=== PATIENT | male | born 1955 | race Caucasian/White ===

== ENCOUNTER → 2017-01-23 | Outpatient (CLI) | payer BC ==
[~2017-01-23] MED LIST: BUPIVACAINE MPF 0.5% 10 ML VIAL for KCIC. IJ ONE; CONTRAST GIVEN MC PRN; DICL1TAB5 PO; ESCI20TA PO; IOHEXOL 300 MG/ML 50 ML VIAL. INT ART ONE; LIDOCAINE 1% Multi-Dose 20 ML VIAL. ID ONE; OMEP40CA2 PO; RANI300T3 PO; SILD100T PO; TRAM50TA PO; methylPREDNISolone ACETATE 40 MG/ML VIAL. INT ART ONE
--- NOTE | 2017-01-24 10:22 | KCIC ---
PROCEDURE Therapeutic right and left shoulder steroid injections using fluoroscopic guidance. HISTORY Pain. TECHNIQUE The procedure was explained to the patient as were potential risks, including among others infection, bleeding or allergic reaction. All questions were answered. Informed written consent was obtained. The anterior right shoulder was prepped and draped in the usual sterile manner. Following administration of local anesthetic, a 22-gauge needle was advanced into the shoulder joint without difficulty. Following negative aspiration, a mixture of 4 cc Omnipaque-300, 2 cc (80 mg) Depo-Medrol, 4 cc 0.5% Marcaine and 4 cc 1% lidocaine were injected without difficulty. Fluoroscopy demonstrates uniform and satisfactory distribution of the injection through the shoulder. The needle was removed. There was good hemostasis at the injection site. The patient left in stable condition without immediate complication. The left shoulder was then prepped and draped in the usual sterile manner. Following administration of local anesthetic, a 22-gauge needle was advanced into the anterior shoulder. Following negative aspiration, 12 cc of a solution of 5cc Omnipaque-300 contrast, 5 cc 1% lidocaine, 10 cc normal saline, and 0.1 cc gadolinium was injected without difficulty. The needle was removed. There was good hemostasis at the injection site. The patient left in stable condition without immediate complication. The patient was given postprocedural instructions, instructed to contact us or the emergency room if there are any complications. Two spot images were obtained. FLUOROSCOPY TIME: 51 seconds Electronically signed by: Delio Palomo MD (Jan 24, 2017 10:20:45)
== END | disposition home or self-care (01) ==
LOC: KCIC 15:14
PROVIDERS: ATTEND Orthopaedic Surgery
DX: M17.0 Bilateral primary osteoarthritis of knee (principal)
CPT/HCPCS: 20610; 77002; J1030; Q9967

== ENCOUNTER → 2017-06-13 | Outpatient (CLI) | payer BC ==
[~2017-06-13] MED LIST changes: -CONTRAST GIVEN MC PRN; -ESCI20TA PO; +ESCITALOPRAM OX20 MG PO; -LIDOCAINE 1% Multi-Dose 20 ML VIAL. ID ONE; +LIDOCAINE 1% Multi-Dose 20 ML VIAL. IJ ONE
--- NOTE | 2017-06-13 13:54 | KCIC ---
Bilateral therapeutic shoulder injection using fluoroscopic guidance. Indication: Bilateral shoulder pain. Severe degenerative osteoarthritis of both shoulders.. Technique: The procedure was explained to the patient as were potential risks including bleeding and infection and allergic reaction. All questions were answered. Informed written consent was obtained. A timeout was performed which confirmed the name of the patient and the date of and the type of procedure and the side of the procedure which is both sides. Allergies to medication and contrast reviewed and no allergies to medications and local anesthetic and contrast used today. The right shoulder was approached first. An appropriate skin rikki was made on the right shoulder using fluoroscopic guidance. The right shoulder was prepped and draped in the usual sterile manner. Following administration of 3 cc of 1% lidocaine for local anesthetic, a 22-gauge spinal needle was advanced into the right glenohumeral joint from an anterior approach. Following negative aspiration, a solution of 5cc Omnipaque 300 contrast, 4 cc of 1% lidocaine, 4 cc of 0.5% Marcaine and 2 cc(80 mg) of Depo-Medrol was injected intra-articularly under fluoroscopic observation without difficulty. The contrast confirmed intra-articular position of the needle. A fluoroscopic spot view was taken. The needle was removed. There was good hemostasis at the injection site. The left shoulder was approached next. An appropriate skin rikki was made on the left shoulder using fluoroscopic guidance. The left shoulder was prepped and draped in the usual sterile fashion. Following administration of 3 cc of 1% lidocaine for local anesthetic, a 22-gauge spinal needle was advanced into the left glenohumeral joint from an anterior approach. Following negative aspiration, a solution of 5 cc of Omnipaque 300 contrast, 4 cc of 1% lidocaine, 4 cc of 0.5% Marcaine, and 2 cc (80 mg) of Depo-Medrol was injected intra-articularly under fluoroscopic observation without difficulty. The contrast confirmed intra-articular position of the needle. 2 fluoroscopic spot views were taken. The needle was removed. There was good hemostasis at the injection site. The patient left in stable condition without immediate complication. The patient was given postprocedural instructions, and instructed to contact us or the ER if there are any complications. Total fluoroscopic time: 44 seconds. Total fluoroscopic spot images: 3. Impression: Bilateral therapeutic shoulder injections were performed without complication. Electronically signed by: Jed Hunt MD (06/13/2017 1:51 PM) [id number]
== END | disposition home or self-care (01) ==
LOC: KCIC 11:58
PROVIDERS: ATTEND Orthopaedic Surgery
DX: M19.011 Primary osteoarthritis, right shoulder (principal); M19.012 Primary osteoarthritis, left shoulder
CPT/HCPCS: 20605; 77002; J1030; Q9967

== ENCOUNTER → 2017-10-22 | Outpatient (CLI) | payer BC ==
[2017-10-22] MEDS: methylPREDNISolone ACETATE 40 MG/ML VIAL. INT ART (13:17)
[2017-10-22] MEDS: LIDOCAINE 1% Multi-Dose 20 ML VIAL. IJ (13:17)
[2017-10-22] MEDS: IOHEXOL 300 MG/ML 50 ML VIAL. IART (13:17)
[2017-10-22] MEDS: BUPIVACAINE MPF 0.5% 10 ML VIAL for KCIC. IJ (13:17)
== END | disposition home or self-care (01) ==
LOC: KCIC 12:16
DX: M19.012 Primary osteoarthritis, left shoulder (principal); M19.011 Primary osteoarthritis, right shoulder
CPT/HCPCS: 20605; 77002; J1030; Q9967

== ENCOUNTER → 2018-02-02 | Outpatient (CLI) | payer OTHER | END | disposition home or self-care (01) | LOC: KCIC MRI 07:40 | DX: R51 Headache (principal); R42 Dizziness and giddiness | CPT/HCPCS: 70551 ==

== ENCOUNTER → 2018-10-16 | Outpatient (CLI) | payer OTHER ==
[~2018-10-16] MED LIST changes: +LIDOCAINE 1% Multi-Dose 20 ML VIAL. ID ONE; -LIDOCAINE 1% Multi-Dose 20 ML VIAL. IJ ONE
--- NOTE | 2018-10-16 17:10 | KCIC ---
Therapeutic bilateral shoulder injection using fluoroscopic guidance. HISTORY: Pain. Osteoarthritis. TECHNIQUE The procedure was explained to the patient as were potential risks, including among others infection, bleeding or allergic reaction. All questions were answered. Informed written consent was obtained. The anterior right shoulder was prepped and draped in the usual sterile manner. Following administration of local anesthetic, a 22-gauge needle was advanced into the shoulder joint without difficulty. Following negative aspiration, a mixture of 4 cc Omnipaque-300, 2 cc (80 mg) Depo-Medrol, 4 cc 0.5% Marcaine and 4 cc 1% lidocaine were injected without difficulty. The needle was removed. There was good hemostasis at the injection site. The procedure was then repeated at the left shoulder, and the same mixture volumes were injected after sterile preparation. After needle removal, there was good hemostasis at the injection site. The patient left in stable condition without immediate complication. The patient was given postprocedural instructions, instructed to contact us or the emergency room if there are any complications. A total of 2 spot images were obtained. FLUOROSCOPY TIME: 31 seconds Electronically signed by: Delio Palomo MD (10/16/2018 5:07 PM) [id number]
== END | disposition home or self-care (01) ==
LOC: KCIC 12:39
PROVIDERS: ATTEND Orthopaedic Surgery
DX: M19.012 Primary osteoarthritis, left shoulder (principal); M19.011 Primary osteoarthritis, right shoulder; G89.29 Other chronic pain; Z79.899 Other long term (current) drug therapy
CPT/HCPCS: 20610; 77002; J1030; Q9967; 20605